=== PATIENT | female | born 2000 | race Caucasian/White ===

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

== ENCOUNTER → 2021-06-18 | Outpatient (CLI) | payer OTHER | LOC: ULTRA 13:34 | PROVIDERS: ATTEND Family Medicine | DX: E28.2 Polycystic ovarian syndrome (principal); N94.6 Dysmenorrhea, unspecified ==